=== PATIENT | male | born 1985 | race Caucasian/White ===

== ENCOUNTER 2018-07-04 16:06 | Emergency (ER) | payer SELFPAY ==
[~2018-07-04] VITALS: Ht 170.2 cm; Wt 67.4 kg
[~2018-07-04 16:06] MED LIST: FAMO20TA; IBUP-727
[2018-07-04 16:18] VITALS: BP 119/78; PULSE 110; RESP 20; Ht 170.2 cm; Wt 67.4 kg
== END 2018-07-04 18:42 | disposition left against medical advice (07) ==
LOC: E/R 16:06
DX: Z53.21 Procedure and treatment not carried out due to patient leaving prior to being seen by health care provider (principal)
CPT/HCPCS: 82962